=== PATIENT | female | born 1955 | race African-American/Black ===

== ENCOUNTER 2016-12-10 12:30 | Inpatient (IN) | payer OTHER ==
[~2016-12-10] VITALS: Ht 167.6 cm; Wt 121.8 kg
[~2016-12-10 12:30] MED LIST changes: -AEROSPAN80 MCG/Act IH; -ASPIRIN 81M81 MG/TA2 PO; -B-121000 MCG PO; -CANA300T PO; -CLARITIN 1010 MG/TAB PO; -DIOVAN 40MG40 MG PO; -ENJUVIA PO; -FLONASEALLERGY NS; -GLUCOTROL 5M5 MG/TAB PO; -OMEGA-3 1000 MG1 CAP PO; -PREDNISONE10 MG PO; -RT ADVAIR 228 DISKUS IH; -SINGULAIR 110 MG/TAB PO; -SYNTHROID0.05 MG/TA PO; -VITAMIN D32000 IU PO; -ZOCOR 20MG20 MG PO
[2016-12-10] MEDS ORDERED: ASPIRIN 81M81 MG/TA2 PO (14:59)
[2016-12-10] MEDS ORDERED: VITAMIN D32000 IU PO (15:01)
[2016-12-10] MEDS ORDERED: DIOVAN 40MG40 MG PO (15:26)
[2016-12-10] MEDS ORDERED: CANA300T PO (15:26)
[2016-12-10] MEDS ORDERED: ZOCOR 20MG20 MG PO (15:27)
[2016-12-10] MEDS ORDERED: SYNTHROID0.05 MG/TA PO (15:27)
[2016-12-10] MEDS ORDERED: OMEGA-3 1000 MG1 CAP PO (15:28)
[2016-12-10] MEDS ORDERED: GLUCOTROL 5M5 MG/TAB PO (15:28)
[2016-12-10] MEDS ORDERED: B-121000 MCG PO (15:28)
[2016-12-10] MEDS ORDERED: ENJUVIA PO (15:30)
[2016-12-10 16:09] VITALS: BP 118/90; PULSE 91; TEMP 98.7
[2016-12-10 20:42] VITALS: BP 123/69; PULSE 105; TEMP 98.6
[2016-12-10 22:51] VITALS: BP 123/67; PULSE 82; TEMP 98.4
[2016-12-11 03:33] VITALS: BP 118/72; PULSE 94; TEMP 97.5
[2016-12-11 06:41] LABS: BASO % 0.6 % (0.0-2.0); EOS # 0.4 (0.0-0.7); EOS % 7.2 % (0-4.0); GRAN # 2.4 (1.4-6.5); HEMATOCRIT 41.3 % (37.0-47.0); HEMOGLOBIN 13.1 g/dl (12.5-16.0); LYMPH # 2.2 (1.2-3.4); MEAN CELL VOLUME 86 fl (80.0-100.0); MEAN CORPUSCULAR HEMOGLOBIN 27 pg (27.0-31.0); MEAN CORPUSCULAR HGB CONC 32 g/dl (33.0-37.0); MEAN PLATELET VOLUME 9.9 fl (7.4-10.4); MONO # 0.4 (0.1-0.6); PLATELET COUNT 232 K/mm3 (130-400); RED BLOOD COUNT 4.81 M/mm3 (4.10-5.30); WHITE BLOOD COUNT 5.4 K/mm3 (4.8-10.8)
[2016-12-11 07:08] VITALS: BP 129/79; PULSE 92; TEMP 99
[2016-12-11 07:10] LABS: CALCIUM 9.3 mg/dL (8.4-10.2); CREATININE, serum 0.79 mg/dL (0.52-1.25); POTASSIUM 3.9 mmol/L (3.4-5.0)
[2016-12-11 11:31] VITALS: BP 151/86; PULSE 90; TEMP 98
[2016-12-11 15:16] VITALS: BP 107/76; PULSE 96; TEMP 97.8
[2016-12-11 19:48] VITALS: BP 102/59; PULSE 102; TEMP 97.7
[2016-12-11 23:32] VITALS: BP 119/63; PULSE 95; TEMP 98.8
[2016-12-12 04:29] VITALS: BP 118/72; PULSE 87; TEMP 98.5
[2016-12-12 11:40] VITALS: BP 117/68; PULSE 96; TEMP 98.7
[2016-12-12 17:21] VITALS: BP 124/67; PULSE 97; TEMP 99
[2016-12-12 20:14] VITALS: BP 142/88; PULSE 113; TEMP 98.5
[2016-12-12 23:55] VITALS: BP 123/79; PULSE 102; TEMP 98
[2016-12-13 02:52] VITALS: BP 143/87; PULSE 91; TEMP 98.4
[2016-12-13 07:07] LABS: ADD PATHOLOGY DIFF REVIEW NO
[2016-12-13 07:22] LABS: HEMATOCRIT 42.8 % (37.0-47.0); HEMOGLOBIN 13.5 g/dl (12.5-16.0); MEAN CELL VOLUME 87 fl (80.0-100.0); MEAN CORPUSCULAR HEMOGLOBIN 28 pg (27.0-31.0); MEAN CORPUSCULAR HGB CONC 32 g/dl (33.0-37.0); MEAN PLATELET VOLUME 9.5 fl (7.4-10.4); PLATELET COUNT 279 K/mm3 (130-400); RED BLOOD COUNT 4.91 M/mm3 (4.10-5.30); REDCELL DISTRIBUTION WIDTH-CV 14.9 % (11.5-14.5); WHITE BLOOD COUNT 8.7 K/mm3 (4.8-10.8)
[2016-12-13 07:50] LABS: BAND 4 % (0-10); NEUTROPHILS 69 % (42.0-75.2); PLATELET ESTIMATE NORMAL (NORMAL); TOTAL CELLS COUNTED 100
[2016-12-13 08:11] VITALS: BP 125/74; PULSE 102; TEMP 98.6
[2016-12-13 12:01] VITALS: BP 136/89; PULSE 88; TEMP 98.8
[2016-12-13 15:02] VITALS: BP 116/67; PULSE 103; TEMP 98.5
[2016-12-13 19:38] VITALS: BP 123/68; PULSE 100; TEMP 98.8
[2016-12-13 22:33] VITALS: BP 127/67; PULSE 97; TEMP 98.5
[2016-12-14 03:39] VITALS: BP 128/85; PULSE 87; TEMP 97.9
[2016-12-14 07:35] VITALS: BP 114/71; PULSE 97; TEMP 98.4
[2016-12-14] MEDS ORDERED: CLARITIN 1010 MG/TAB PO (09:38)
[2016-12-14] MEDS ORDERED: RT ADVAIR 228 DISKUS IH (09:40)
[2016-12-14] MEDS ORDERED: SINGULAIR 110 MG/TAB PO (09:41)
[2016-12-14] MEDS ORDERED: FLONASEALLERGY NS (09:42)
[2016-12-14] MEDS ORDERED: AEROSPAN80 MCG/Act IH (09:45)
[2016-12-14] MEDS ORDERED: PREDNISONE10 MG PO (09:45)
[2016-12-14 11:14] VITALS: BP 122/76; PULSE 100; TEMP 98
[2016-12-17 12:48] LABS: .HISTOPLASMA ANTIGEN COMMENT Negative (()); .HISTOPLASMA ANTIGEN SERUM None Detected (())
[2016-12-18 15:39] LABS: COCCIDIOIDES AB IGG Negative (Negative); COCCIDIOIDES AB IGM Negative (Negative); COCCIDIOIDES CF Negative (Negative)
== END 2016-12-14 13:31 | disposition home or self-care (01) | DRG 202 ==
LOC: COL.VAS 12:30 → MEDICAL 13:30
PROVIDERS: Internal Medicine Pulmonary Disease; Nurse Practitioner Family
DX: J45.991 Cough variant asthma (principal); Z68.41 Body mass index [BMI] 40.0-44.9, adult; I10 Essential (primary) hypertension; E11.9 Type 2 diabetes mellitus without complications; E66.9 Obesity, unspecified; E26.9 Hyperaldosteronism, unspecified; G47.33 Obstructive sleep apnea (adult) (pediatric)
CPT/HCPCS: 99231-AI; 99232-AI; 99239; G0378; G0379; J1650; J7512; Q9967

== ENCOUNTER → 2016-12-10 | Outpatient (CLI) | payer OTHER ==
[~2016-12-10] MED LIST: AEROSPAN80 MCG/Act IH; ALDACTONE 25MG25 MG PO; ALLOPURINOL300 MG PO; ASPIRIN 81M81 MG/TA2 PO; B-121000 MCG PO; CANA300T PO; CENESTIN0.3 MG PO; CLARITIN 1010 MG/TAB PO; COREG CR80 MG PO; DIOVAN 40MG40 MG PO; DIOVAN HCT PO; DOXAZOCIN PO; ENJUVIA PO; FISH OIL CONC1000 MG PO; FLONASEALLERGY NS; GLUCOTROL 5M5 MG/TAB PO; OMEGA-3 1000 MG1 CAP PO; PREDNISONE10 MG PO; RT ADVAIR 228 DISKUS IH; SINGULAIR 110 MG/TAB PO; SINGULAIR10 MG PO; SYNTHROID0.05 MG/TA PO; TEKTURNA PO; TIROSINT50 MCG PO; VITAMIN D; VITAMIN D32000 IU PO; ZOCOR 20MG20 MG PO
== END ==
LOC: ZCOL.LAB 12:39
DX: I10 Essential (primary) hypertension (principal); J32.9 Chronic sinusitis, unspecified

== ENCOUNTER → 2017-07-29 | Outpatient (CLI) | payer OTHER ==
[~2017-07-29] MED LIST changes: +AEROSPAN80 MCG/Act IH; +ASPIRIN 81M81 MG/TA2 PO; +B-121000 MCG PO; +CANA300T PO; +CLARITIN 1010 MG/TAB PO; +DIOVAN 40MG40 MG PO; +ENJUVIA PO; +FLONASEALLERGY NS; +GLUCOTROL 5M5 MG/TAB PO; +OMEGA-3 1000 MG1 CAP PO; +PREDNISONE10 MG PO; +RT ADVAIR 228 DISKUS IH; +SINGULAIR 110 MG/TAB PO; +SYNTHROID0.05 MG/TA PO; +VITAMIN D32000 IU PO; +ZOCOR 20MG20 MG PO
== END ==
LOC: MC.RAD 09:00
DX: Z12.31 Encounter for screening mammogram for malignant neoplasm of breast (principal)

== ENCOUNTER → 2018-07-05 | Outpatient (REF) ==
[2018-07-05 15:29] LABS: HEMATOCRIT 27.5 % (37.0-47.0); HEMOGLOBIN 8.4 g/dl (12.5-16.0)
[2018-07-05 15:34] LABS: CALCIUM 9.6 mg/dL (8.4-10.2); CREATININE, serum 1.48 mg/dL (0.52-1.25); POTASSIUM 4.2 mmol/L (3.4-5.0)
== END ==
LOC: ZLAB.STJ 15:24
PROVIDERS: Family Medicine
DX: E83.39 Other disorders of phosphorus metabolism (principal); R79.89 Other specified abnormal findings of blood chemistry; R71.0 Precipitous drop in hematocrit

== ENCOUNTER → 2018-07-07 | Outpatient (CLI) | payer OTHER ==
[2018-07-07 10:43] LABS: TOTAL IRON BINDING CAPACITY 301 ug/dL (265-497)
[2018-07-07 10:59] LABS: IRON,SERUM 47 ug/dL (35-150)
[2018-07-07 11:10] LABS: FERRITIN 320 ng/mL (11-264)
== END ==
LOC: ZLAB.STJ 09:55
PROVIDERS: Internal Medicine Nephrology
DX: S72.91XD Unspecified fracture of right femur, subsequent encounter for closed fracture with routine healing (principal)

== ENCOUNTER → 2018-07-11 | Outpatient (REF) ==
[2018-07-11 11:04] LABS: HEMATOCRIT 27.3 % (37.0-47.0); HEMOGLOBIN 8.3 g/dl (12.5-16.0)
[2018-07-11 11:18] LABS: CALCIUM 9.2 mg/dL (8.4-10.2); CREATININE, serum 1.01 mg/dL (0.52-1.25); PHOSPHOROUS 3.3 mg/dL (2.5-4.5); POTASSIUM 4.5 mmol/L (3.4-5.0)
== END ==
LOC: ZLAB.STJ 10:39
PROVIDERS: Family Medicine
DX: D64.9 Anemia, unspecified (principal); E83.39 Other disorders of phosphorus metabolism; R79.89 Other specified abnormal findings of blood chemistry

== ENCOUNTER → 2018-07-15 | Outpatient (CLI) | payer OTHER | LOC: COL.RAD 09:45 | DX: M17.11 Unilateral primary osteoarthritis, right knee (principal); M16.11 Unilateral primary osteoarthritis, right hip; S72.8X1A Other fracture of right femur, initial encounter for closed fracture ==

== ENCOUNTER → 2018-08-11 | Outpatient (CLI) | payer OTHER | LOC: COL.VAS 08:26 | DX: Z13.6 Encounter for screening for cardiovascular disorders (principal); M79.89 Other specified soft tissue disorders ==

== ENCOUNTER → 2018-08-22 | Outpatient (REF) ==
[2018-08-22 13:50] LABS: COLLECTION METHOD CLEAN CATCH
[2018-08-22 14:07] LABS: MUCOUS Present /lpf; PH 7 (5-8); URINE APPEARANCE Hazy; URINE BACTERIA Many /hpf; URINE BILIRUBIN Negative (NEGATIVE); URINE BLOOD Negative (NEGATIVE); URINE COLOR Yellow; URINE GLUCOSE Negative (NEGATIVE); URINE KETONE Negative (NEGATIVE); URINE LEUKOCYTE ESTERASE Negative (NEGATIVE); URINE NITRATE Negative (NEGATIVE); URINE PROTEIN(semi-quant) Negative (NEGATIVE); URINE RBC 0-2 /hpf; URINE UROBILINOGEN Negative (NEGATIVE)
== END ==
LOC: ZLAB.STJ 13:49 → ZLAB.WCH 13:49
PROVIDERS: Family Medicine
DX: R82.90 Unspecified abnormal findings in urine (principal)

== ENCOUNTER → 2018-08-25 | Outpatient (CLI) | payer OTHER ==
[2018-08-25 16:10] LABS: COLLECTION METHOD CLEAN CATCH
[2018-08-25 16:26] LABS: MUCOUS Present /lpf; PH 5 (5-8); URINE APPEARANCE Clear; URINE BACTERIA Rare /hpf; URINE BILIRUBIN Negative (NEGATIVE); URINE BLOOD Negative (NEGATIVE); URINE CALCIUM OXALATE CRYSTAL Present /hpf; URINE COLOR Yellow; URINE GLUCOSE Negative (NEGATIVE); URINE KETONE Negative (NEGATIVE); URINE LEUKOCYTE ESTERASE Negative (NEGATIVE); URINE NITRATE Negative (NEGATIVE); URINE PROTEIN(semi-quant) Negative (NEGATIVE); URINE RBC 0-2 /hpf; URINE UROBILINOGEN Negative (NEGATIVE)
== END ==
LOC: ZCOL.LAB 15:14 → ZLAB.STJ 15:14
PROVIDERS: Family Medicine
DX: N39.0 Urinary tract infection, site not specified (principal)

== ENCOUNTER → 2019-09-04 | Outpatient (CLI) | payer BC | LOC: MC.RAD 13:13 | DX: Z12.31 Encounter for screening mammogram for malignant neoplasm of breast (principal) ==

== ENCOUNTER 2019-10-05 10:00 | Outpatient (RCR) | payer BC | END 2020-02-23 | LOC: WSC | DX: S72.351D Displaced comminuted fracture of shaft of right femur, subsequent encounter for closed fracture with routine healing (principal) ==

== ENCOUNTER → 2020-01-25 | Outpatient (CLI) | payer BC | LOC: ZCOL.LAB 07:32 | DX: Z20.828 Contact with and (suspected) exposure to other viral communicable diseases (principal) ==

== ENCOUNTER 2020-07-29 17:24 | Inpatient (IN) | payer BC ==
[~2020-07-29] VITALS: Ht 172.7 cm; Wt 144.0 kg
[2020-07-29 18:23] LABS: ARTERIAL BLD GAS O2 SATURATION 87.3 % (92-100); ARTERIAL BLD GAS TCO2 CT 24.2; ARTERIAL BLOOD GAS BASE EXCESS -1.3 (-2-2); ARTERIAL BLOOD GAS PCO2 37.8 mmHg (35-45); ARTERIAL BLOOD GAS PO2 51.7 mmHg (80-100)
[2020-07-29 18:26] LABS: BASO % 0.1 % (0.0-2.0); GRAN # 10.5 (1.4-6.5); GRAN % 85.1 % (42.2-75.2); HEMATOCRIT 46.5 % (37.0-47.0); HEMOGLOBIN 14.4 g/dl (12.5-16.0); LYMPH # 1.3 (1.2-3.4); LYMPH % 10.3 % (20.0-51.0); MEAN CELL VOLUME 86 fl (80.0-100.0); MEAN CORPUSCULAR HEMOGLOBIN 27 pg (27.0-31.0); MEAN CORPUSCULAR HGB CONC 31 g/dl (33.0-37.0); MEAN PLATELET VOLUME 9.3 fl (7.4-10.4); MONO # 0.5 (0.1-0.6); PLATELET COUNT 303 K/mm3 (130-400); REDCELL DISTRIBUTION WIDTH-CV 16.2 % (11.5-14.5)
[2020-07-29 18:39] LABS: ALANINE AMINOTRANSFERASE 23 U/L (4-34); ALBUMIN 4.3 gm/dL (3.5-5.0); ALKALINE PHOSPHATASE 111 U/L (50-136); ANION GAP 16 mmol/L (7-16); AST,SGOT 36 U/L (15-37); BILIRUBIN,TOTAL 0.9 mg/dL (0.0-1.0); BLOOD UREA NITROGEN 19 mg/dL (7-17); CALCIUM 9.8 mg/dL (8.4-10.2); CARBON DIOXIDE 26 mmol/L (22-30); CHLORIDE 97 mmol/L (98-107); CREATININE, serum 0.91 (0.52-1.25); GLUCOSE 221 mg/dL (74-106); POTASSIUM 5.1 mmol/L (3.4-5.0); SODIUM 139 mmol/L (137-145)
[2020-07-29 18:52] LABS: TROPONIN-I < 0.012 ng/mL (0.000-0.035)
--- NOTE | 2020-07-29 23:10 | NUR ---
Pt stated during transfer from ED to medical that is bringing in her CPAP and walker in.
[2020-07-29] MEDS ORDERED: APRESOLINE 25MG25 MG PO (23:19)
[2020-07-29] MEDS ORDERED: JARDIANCE25 (23:19)
[2020-07-29] MEDS ORDERED: COZAAR 50MG50 MG/TAB PO (23:20)
[2020-07-29] MEDS ORDERED: HCTZ12.5TAB PO (23:20)
[2020-07-29] MEDS ORDERED: ZYLOPRIM 300MG300 MG PO (23:22)
[2020-07-29] MEDS ORDERED: VICTOZA6 MG/ML SQ (23:23)
[2020-07-29] MEDS ORDERED: LEXAPRO 10MG10 MG PO (23:23)
[2020-07-30] VITALS (9 sets, daily range): BP systolic 124–163; BP diastolic 70–98; PULSE 75–100; TEMP 97.9–98.8
[2020-07-30 00:25] LABS: INR 1.2 (0.8-3.0); PROTHROMBIN TIME 12.9 SECONDS (9.7-12.8)
[2020-07-30 00:27] LABS: PARTIAL THROMBOPLASTIN TIME 35.3 SECONDS (26.0-37.0)
[2020-07-30 03:07] LABS: ARTERIAL BLOOD GAS PCO2 48.9 mmHg (35-45); ARTERIAL BLOOD GAS PO2 72.4 mmHg (80-100); ARTERIAL BLOOD GAS pH 7.35 (7.35-7.45)
[2020-07-30 03:09] LABS: ARTERIAL BLD GAS O2 SATURATION 28.1 % (92-100); ARTERIAL BLOOD GAS BASE EXCESS 0.4 (-2-2); ARTERIAL BLOOD GAS HCO3 26.6 meq/L (22-26)
--- NOTE | 2020-07-30 09:00 | NUR ---
PATIENT IS A&O. VSS WITH SATS IN 90'S ON ARVO AT 45L. TELE INPLACE. A&P LUNG BASES DEMINISHED. PATIENT INDEPENDENT IN ROOM BUT DOES DISPLAY SOME SOA WITH ACTIVITY. NO C/O N/V. AHA DIET. 1500CC FR. AM BS IS 173. AM MEDS GIVEN. HEAD TO TOE ASSESSMENT COMPLETE. CALL LIGHT IN REACH. ADMISSION ASSESSMENT, HISTORY, MEDS & CARE PLAN COMPLETED. CONSULTS CALLED.
--- NOTE | 2020-07-30 15:45 | NUR ---
Piece Maker attempted to contact the patient via cell phone to complete inital the patient did not answer. SW contacted the patient's , Mayuri to complete intake. The patient lives in [place] with Mayuri. The patient's daughter from [place] will be at the home to assist. The patient uses a walker and CPAP. The patient's PCP is Dr. Roger and patient receives medications from [facility]. The patient has advanced directives. Mayuri reports they designate him. The plan is for the patient to return home and Mayuri will provide transportation. There are no additional needs at this time.
--- NOTE | 2020-07-30 20:00 | NUR ---
Assessment complete. Patient wearsa 45 liters oxygen via airvo; She is assisted to bathroom with walker; She becomes very SOA after exertion but is able to catch her breath on the side of the bed. Her gait is steady. She has no complaints of pain at this time. Comfort measures provided. Call light in reach.
[2020-07-31] VITALS: BP 123/76; PULSE 83; TEMP 98.7
[2020-07-31 04:00] VITALS: BP 108/52; BP 135/90; PULSE 70; PULSE 81; TEMP 98.3; TEMP 98.8
[2020-07-31 06:40] LABS: HEMATOCRIT 41.8 % (37.0-47.0); HEMOGLOBIN 12.9 g/dl (12.5-16.0); MEAN CELL VOLUME 87 fl (80.0-100.0); MEAN CORPUSCULAR HEMOGLOBIN 27 pg (27.0-31.0); MEAN CORPUSCULAR HGB CONC 31 g/dl (33.0-37.0); MEAN PLATELET VOLUME 10.6 fl (7.4-10.4); PLATELET COUNT 283 K/mm3 (130-400); RED BLOOD COUNT 4.83 M/mm3 (4.10-5.30); REDCELL DISTRIBUTION WIDTH-CV 16.4 % (11.5-14.5)
[2020-07-31 06:51] LABS: CALCIUM 9.6 mg/dL (8.4-10.2); CREATININE, serum 0.76 (0.52-1.25); POTASSIUM 4.9 mmol/L (3.4-5.0)
--- NOTE | 2020-07-31 07:00 | NUR ---
Report received from JESSICA Barnett. pT in bed resting, will continue to monitor.
[2020-07-31 07:57] LABS: BAND 8 % (0-10); LYMPHOCYTE 11 % (20.0-51.0); NEUTROPHILS 77 % (42.0-75.2); NUCLEATED RED BLOOD CELL 1 (0-6)
[2020-07-31 07:59] LABS: PLATELET ESTIMATE NORMAL (NORMAL)
[2020-07-31 08:00] LABS: ANISOCYTOSIS 1+
[2020-07-31 08:02] LABS: HYPOCHROMIA 1+
[2020-07-31 08:50] VITALS: BP 116/78; PULSE 89; TEMP 98.1
--- NOTE | 2020-07-31 09:33 | NUR ---
Assessment charted. PT states she feels well, rested some last night and is not tired todya. Breathing is very tachypneac, AIRVO at 60L and 87% right now. Educated on cough deep breath, getting up when tolerable to chair for meals. Pt denies pain, nausea, diarrhea. Resting in bed on phone with family. PICC to KODAK flushes well and good blood return. Does not like food here, discussed calling for alternatives. Will continue to monitor.
[2020-07-31 12:51] VITALS: BP 131/81; PULSE 88; TEMP 97.7
[2020-07-31 16:00] VITALS: BP 130/78; PULSE 89; TEMP 97.6
--- NOTE | 2020-07-31 17:47 | NUR ---
Pt resting in bed. Insisted upon shower today, did take a very long shower 45 minutes, did not get fatigued or extremely short of breath. Assisted in the shower, pt needed assistance with many ADLs. Resting back in bed, remians on AIRVO. denies needs, will give report to nightshift nurse who will resume care.
[2020-07-31 20:00] VITALS: BP 124/83; PULSE 84; TEMP 98.3
--- NOTE | 2020-07-31 22:00 | NUR ---
Patient's BG is 401 at this time. 14 units insulin administered, per protocol and RETAIL WIRELESS ASSOCIATE Vanda notified. No new orders, will continue to monitor.
[2020-08-01] VITALS (385 sets, daily range): BP systolic 99–134; BP diastolic 47–94; PULSE 61–90; TEMP 97.4–98.5; O2SAT 82–100
--- NOTE | 2020-08-01 06:30 | NUR ---
PT IS SLEEPING IN BED, CURRENTLY HAS BIPAP ON. IT WAS NOTED DURING REPORT THAT PT REMOVED BIPAP AND ATTEMPTED TO PLACE AIRVO ON WITHOUT ASSISTANCE. THIS WAS THE ONLY IMPULSIVE ACTION THE PATIENT MADE THE LAST SHIFT. PT IS CURRENTLY ASLEEP AND BIPAP IS ON. CALL LIGHT IS WITHIN REACH, AND BED ALARM IS ON.
[2020-08-01 07:10] LABS: BASO % 0.1 % (0.0-2.0); GRAN # 5.4 (1.4-6.5); GRAN % 78.1 % (42.2-75.2); HEMOGLOBIN 12.7 g/dl (12.5-16.0); LYMPH # 0.9 (1.2-3.4); LYMPH % 13.2 % (20.0-51.0); MEAN CELL VOLUME 87 fl (80.0-100.0); MEAN CORPUSCULAR HEMOGLOBIN 27 pg (27.0-31.0); MEAN CORPUSCULAR HGB CONC 31 g/dl (33.0-37.0); MEAN PLATELET VOLUME 9.6 fl (7.4-10.4); MONO # 0.5 (0.1-0.6); MONO % 7.9 % (1.7-9.3); PLATELET COUNT 368 K/mm3 (130-400); RED BLOOD COUNT 4.74 M/mm3 (4.10-5.30); REDCELL DISTRIBUTION WIDTH-CV 16.2 % (11.5-14.5)
[2020-08-01 07:21] LABS: CALCIUM 9.6 mg/dL (8.4-10.2); CREATININE, serum 0.77 (0.52-1.25); POTASSIUM 4.6 mmol/L (3.4-5.0)
--- NOTE | 2020-08-01 09:18 | NUR ---
PT REFUSING ALL CARES THIS MORNING. PT OXYGEN IS SATING BETWEEN 83 AND 88. WILL CONTACT PROVIDER, TOLD PATIENT WE MAY NEED A BLOOD GAS, AND PT STATES SHE REFUSES AND DOES NOT WANT US TOUCHING HER. WILL INFORM THE PROVIDER OF PT REFUSAL.
[2020-08-01 10:41] LABS: ARTERIAL BLD GAS TCO2 CT 28.8; ARTERIAL BLOOD GAS BASE EXCESS 1.4 (-2-2); ARTERIAL BLOOD GAS HCO3 27.3 meq/L (22-26); ARTERIAL BLOOD GAS PCO2 47.8 mmHg (35-45); ARTERIAL BLOOD GAS PO2 92.9 mmHg (80-100); ARTERIAL BLOOD GAS pH 7.38 (7.35-7.45)
--- NOTE | 2020-08-01 12:55 | NUR ---
RECEIVED REPORT FROM JESSICA NICOLAS. AWAITING ARRIVAL OF PT TO ISU 3.
--- NOTE | 2020-08-01 13:25 | NUR ---
PT ARRIVES TO ICU 3 ON OXYMASK AT 15ML VIA STRETCHER. PT ABLE TO TRANSFER X2 TO BSC THEN TO ICU BED, RR NOTED TO BE IN THE 30s DURING THIS TIME BUT DOES NOT SEEM AIR HUNGER. PT PLACED ON BEDSIDE CONTINUOUS MONITOR. VSS. RT AT BEDSIDE PLACING PT ON BIPAP, POX GOES FROM 87-95% ONCE ON IT FOR A FEW MINUTES. CALL LIGHT WITHIN REACH.
--- NOTE | 2020-08-01 13:30 | NUR ---
PT TAKEN TO ICU 03, JESSICA MEDINA THERE TO RECEIVE PT. PT IS CURRENTLY STABLE.
--- NOTE | 2020-08-01 16:49 | NUR ---
NOTIFIED DR BALLARD OF FSBS 354, NEW ORDERS RECEIVED.
--- NOTE | 2020-08-01 19:25 | NUR ---
REPORT GIVEN TO JESSICA MCGUIRE.
[2020-08-02] VITALS (433 sets, daily range): BP systolic 101–131; BP diastolic 68–89; PULSE 64–103; TEMP 97.5–98.5; O2SAT 47–100
[2020-08-02 05:29] LABS: EOS % 0.3 % (0-4.0); HEMATOCRIT 40.9 % (37.0-47.0); HEMOGLOBIN 12.7 g/dl (12.5-16.0); LYMPH # 1.2 (1.2-3.4); LYMPH % 17.1 % (20.0-51.0); MEAN CELL VOLUME 87 fl (80.0-100.0); MEAN CORPUSCULAR HEMOGLOBIN 27 pg (27.0-31.0); MEAN CORPUSCULAR HGB CONC 31 g/dl (33.0-37.0); MEAN PLATELET VOLUME 9.2 fl (7.4-10.4); MONO # 0.5 (0.1-0.6); MONO % 7.7 % (1.7-9.3); PLATELET COUNT 309 K/mm3 (130-400); RED BLOOD COUNT 4.73 M/mm3 (4.10-5.30); REDCELL DISTRIBUTION WIDTH-CV 16.1 % (11.5-14.5)
[2020-08-02 05:43] LABS: CALCIUM 9.6 mg/dL (8.4-10.2); CREATININE, serum 0.75 (0.52-1.25); PHOSPHOROUS 3.7 mg/dL (2.5-4.5); POTASSIUM 4.2 mmol/L (3.4-5.0)
--- NOTE | 2020-08-02 07:15 | NUR ---
Report given to JESSICA Dc. Patient currently sitting up in bed with breakfast tray. Wearing AirVo; tolerating well.
--- NOTE | 2020-08-02 07:30 | NUR ---
REPORT RECEIVED FROM JESSICA MCGUIRE. PATIENT CURRENTLY SLEEPING IN BED AT 30 DEGREEE ANGLE. SHE APPEARS COMFORTABLE IN NO DISTRESS. WILL CONTINUE TO MONITOR.
--- NOTE | 2020-08-02 11:00 | NUR ---
INSULIN GTT DISCONTINUED PER DR. BALLARD ORDER AND PATIENT ASSISTED TO BEDSIDE COMMODE. SHE IS STEADY ON HER FEET BUT GETS SHORT OF BREATH WITH EXERTION. SPO2 DIPPED INTO THE MID-80s WHEN UP AND MOVING WHILE ON AIRVO.
--- NOTE | 2020-08-02 16:48 | NUR ---
Telesales Professional requested PT/OT orders from Hospitalist.
--- NOTE | 2020-08-02 19:24 | NUR ---
REPORT GIVEN TO JESSICA VARGAS
--- NOTE | 2020-08-02 20:00 | NUR ---
Assessment complete. Pt is AXO X3, denies having any pain at this time. Breathing is even and unlabored on airvo while sitting in the recliner. KODAK PICC has good blood return, flushes easily, and remains free of complications. Pt is sitting up in the bed recliner talking on her phone at this time and she denies further needs. Call light within reach, will continue to monitor.
[2020-08-03] VITALS (756 sets, daily range): BP systolic 91–138; BP diastolic 60–96; PULSE 71–106; TEMP 98–98.5; O2SAT 75–100
--- NOTE | 2020-08-03 07:00 | NUR ---
RECEIVED REPORT FROM JESSICA VARGAS. PT RESTING EASILY IN BED ON AIRVO AT 60L, 69%. VSS. CALL LIGHT WITHIN REACH.
[2020-08-03 07:06] LABS: EOS # 0.1 (0.0-0.7); EOS % 1.4 % (0-4.0); GRAN # 4.5 (1.4-6.5); HEMATOCRIT 42.4 % (37.0-47.0); HEMOGLOBIN 13.1 g/dl (12.5-16.0); LYMPH # 1.4 (1.2-3.4); LYMPH % 21.1 % (20.0-51.0); MEAN CELL VOLUME 86 fl (80.0-100.0); MEAN CORPUSCULAR HEMOGLOBIN 27 pg (27.0-31.0); MEAN CORPUSCULAR HGB CONC 31 g/dl (33.0-37.0); MEAN PLATELET VOLUME 9.1 fl (7.4-10.4); MONO # 0.6 (0.1-0.6); MONO % 9.4 % (1.7-9.3); PLATELET COUNT 377 K/mm3 (130-400); RED BLOOD COUNT 4.92 M/mm3 (4.10-5.30)
[2020-08-03 07:36] LABS: CALCIUM 9.5 mg/dL (8.4-10.2); CREATININE, serum 0.69 (0.52-1.25); MAGNESIUM 1.9 mg/dL (1.6-2.3); POTASSIUM 4.7 mmol/L (3.4-5.0)
--- NOTE | 2020-08-03 09:00 | NUR ---
SPOKE WITH DR BALLARD ABOUT FSBS AND INSULIN, NEW ORDERS RECEIVED.
--- NOTE | 2020-08-03 12:00 | NUR ---
DISCUSSED WITH DR HELM ABOUT FSBS AND INSULIN. PHYSICIAN REQUESTS INSULIN GTT TO BE INITIATED. DR BALLARD NOTIFIED AND NEW ORDERS RECEIVED. PT UPDATED ON POC.
[2020-08-03 18:56] LABS: MAGNESIUM 1.8 mg/dL (1.6-2.3); PHOSPHOROUS 2.9 mg/dL (2.5-4.5); POTASSIUM 4.6 mmol/L (3.4-5.0)
--- NOTE | 2020-08-03 20:00 | NUR ---
Assessment complete. Pt is AXO X3, denies having any pain at this time. Breathing is even but labored after exertion on 60L via Airvo. KODAK PICC has insulin gtt infusing free of complications. Pt is sitting up in the chair talking on the phone with family at this time and she denies further needs. Call light within reach, will continue to monitor.
[2020-08-04] VITALS (952 sets, daily range): BP systolic 110–138; BP diastolic 72–85; PULSE 68–83; TEMP 97.8–98.4; O2SAT 38–100
[2020-08-04 00:59] LABS: MAGNESIUM 1.7 mg/dL (1.6-2.3); PHOSPHOROUS 3.1 mg/dL (2.5-4.5); POTASSIUM 4.1 mmol/L (3.4-5.0)
[2020-08-04 06:29] LABS: EOS # 0.2 (0.0-0.7); GRAN # 4.9 (1.4-6.5); HEMATOCRIT 39.6 % (37.0-47.0); HEMOGLOBIN 12.2 g/dl (12.5-16.0); LYMPH # 1.3 (1.2-3.4); LYMPH % 17.9 % (20.0-51.0); MEAN CELL VOLUME 87 fl (80.0-100.0); MEAN CORPUSCULAR HEMOGLOBIN 27 pg (27.0-31.0); MEAN CORPUSCULAR HGB CONC 31 g/dl (33.0-37.0); MEAN PLATELET VOLUME 9.6 fl (7.4-10.4); MONO % 12.8 % (1.7-9.3); PLATELET COUNT 430 K/mm3 (130-400); RED BLOOD COUNT 4.56 M/mm3 (4.10-5.30); REDCELL DISTRIBUTION WIDTH-CV 15.9 % (11.5-14.5)
[2020-08-04 06:40] LABS: CALCIUM 9.6 mg/dL (8.4-10.2); CREATININE, serum 0.62 (0.52-1.25); MAGNESIUM 1.9 mg/dL (1.6-2.3); PHOSPHOROUS 3.1 mg/dL (2.5-4.5); POTASSIUM 4.4 mmol/L (3.4-5.0)
--- NOTE | 2020-08-04 07:00 | NUR ---
RECEIVED REPORT FROM JESSICA VARGAS. PT SITTING UP IN CHAIR SLEEPING ON BIPAP. VSS. CALL LIGHT WITHIN REACH. SEE GTT FLOWSHEET.
--- NOTE | 2020-08-04 13:00 | NUR ---
DSICUSSED POC WITH DR HELM AND DR BALLARD ABOUT INSULIN GTT. THEY REQUEST LEVEMIR ORDERED TO BE GIVEN THEN AN HOUR LATER TO TURN OFF INSULIN GTT THEN RECHECK FSBS AGAIN 30 MINS AFTER GTT IS OFF. PT UPDATED ON POC. VERBALIZED UNDERSTANDING.
[2020-08-04 13:08] LABS: MAGNESIUM 1.8 mg/dL (1.6-2.3); PHOSPHOROUS 2.5 mg/dL (2.5-4.5); POTASSIUM 4.7 mmol/L (3.4-5.0)
--- NOTE | 2020-08-04 16:30 | NUR ---
SPOKE WITH DR BALLARD ABOUT FSBS SINCE LEVEMIR WAS GIVEN AND INSULIN GTT OFF. PHYISICIAN STATES TO DO SLIDING SCALE AND ORDERS TO GIVE 10 UNITS WITH MEAL AND TO CHECK TO SEE HOW PT LEVELS OUT OVER THE NEXT DAY.
--- NOTE | 2020-08-04 20:00 | NUR ---
Assessment complete. Pt is AXO X3, denies having any pain at this time. Breathing is even but labored after exertion on 50L via Airvo. KODAK PICC line flushes easily but has difficult blood return. Pt is sitting up in the bed watching TV at this time and she denies further needs. Call light within reach, will continue to monitor.
[2020-08-05] VITALS (482 sets, daily range): BP systolic 115–121; BP diastolic 70–81; PULSE 71–76; TEMP 97.8–98.2; O2SAT 55–100
[2020-08-05 07:22] LABS: HEMATOCRIT 41.5 % (37.0-47.0); HEMOGLOBIN 12.5 g/dl (12.5-16.0); MEAN CELL VOLUME 88 fl (80.0-100.0); MEAN CORPUSCULAR HEMOGLOBIN 27 pg (27.0-31.0); MEAN CORPUSCULAR HGB CONC 30 g/dl (33.0-37.0); MEAN PLATELET VOLUME 10.6 fl (7.4-10.4); PLATELET COUNT 405 K/mm3 (130-400); RED BLOOD COUNT 4.71 M/mm3 (4.10-5.30)
[2020-08-05 07:35] LABS: CALCIUM 9.9 mg/dL (8.4-10.2); CREATININE, serum 0.74 (0.52-1.25); MAGNESIUM 1.8 mg/dL (1.6-2.3); PHOSPHOROUS 2.9 mg/dL (2.5-4.5); POTASSIUM 4.7 mmol/L (3.4-5.0)
[2020-08-05 08:33] LABS: LYMPHOCYTE 15 % (20.0-51.0); NEUTROPHILS 83 % (42.0-75.2)
[2020-08-05 08:34] LABS: PLATELET ESTIMATE INCREASED (NORMAL)
--- NOTE | 2020-08-05 10:20 | NUR ---
SPOKE TO NAZIA REYNA WHO SPOKE TO THE RADIOLOGIST ABOUT CXR TODAY. YESTERDAY XRAY SHOWED NEED TO PULL PICC LINE BACK 4 CM. CLARIFIED WITH CXR FROM TODAY, RADIOLOGIST SAID THAT IT IS IN GOOD POSITION TODAY AND DOES NOT NEED MOVED AT THIS TIME.
--- NOTE | 2020-08-05 11:55 | NUR ---
Chaplain allisond for patient while standing outside of door
--- NOTE | 2020-08-05 12:37 | NUR ---
Supervisor Type Bar And Segment contacted Gris Thrasher RN-CM at [facility] and was advised they do not have copy of DPOA-HC. SW contacted patient's , Gris and left a message.
--- NOTE | 2020-08-05 17:51 | NUR ---
ATTEMPTED TO NOTIFY DR GUZMAN OF PT'S FSBS
--- NOTE | 2020-08-05 18:05 | NUR ---
NOTIFIED DR BALLARD ABOUT FSBS, IF GREATER THAN 400 AGAIN THEN CALL TO POSSIBLY GET BACK ON INSULIN GTT, IF LESS THAN 400 THEN PROVIDE INSULIN PER ORDERS.
--- NOTE | 2020-08-05 20:00 | NUR ---
Assessment complete. Pt is AXO X3, denies having any pain at this time. Breathing is even but labored after assisting the pt to the commode and back to the recliner on 45L via Airvo. KODAK PICC has good blood return, flushes easily, and remains free of complications. Pt is now sitting up in the recliner watching TV and she denies further needs. Call light within reach, will continue to monitor.
[2020-08-06] VITALS (351 sets, daily range): BP systolic 120–143; BP diastolic 72–97; PULSE 67–77; TEMP 97.8–98.1; O2SAT 53–99
--- NOTE | 2020-08-06 07:00 | NUR ---
RECEIVED REPORT FROM JESSICA VARGAS. PT SLEEPING IN BED ON BIPAP ON 75%. VSS. CALL LIGHT WITHIN REACH.
[2020-08-06 07:18] LABS: EOS # 0.1 (0.0-0.7); EOS % 0.8 % (0-4.0); GRAN # 5.6 (1.4-6.5); GRAN % 77.8 % (42.2-75.2); HEMATOCRIT 37.1 % (37.0-47.0); HEMOGLOBIN 11.5 g/dl (12.5-16.0); LYMPH # 0.9 (1.2-3.4); LYMPH % 13.1 % (20.0-51.0); MEAN CELL VOLUME 86 fl (80.0-100.0); MEAN CORPUSCULAR HEMOGLOBIN 27 pg (27.0-31.0); MEAN CORPUSCULAR HGB CONC 31 g/dl (33.0-37.0); MONO # 0.5 (0.1-0.6); MONO % 7.6 % (1.7-9.3); PLATELET COUNT 491 K/mm3 (130-400); REDCELL DISTRIBUTION WIDTH-CV 15.8 % (11.5-14.5)
[2020-08-06 07:29] LABS: CALCIUM 9.5 mg/dL (8.4-10.2); CREATININE, serum 0.67 (0.52-1.25); MAGNESIUM 1.8 mg/dL (1.6-2.3); PHOSPHOROUS 3.1 mg/dL (2.5-4.5); POTASSIUM 4.6 mmol/L (3.4-5.0)
--- NOTE | 2020-08-06 10:00 | NUR ---
DR HELM AT BEDSIDE FOR ASSESSMENT. DISCUSSED INSULIN GTT TO BE RESTARTED AND LEVEMIR CHANGES, SEE MAR.
--- NOTE | 2020-08-06 20:00 | NUR ---
Assessment complete. Pt is AXO X3, denies having any pain at this time. Breathing is even but labored after exertion on Airvo. KODAK PICC line has insulin gtt infusing free of complications. Pt is sitting up in the bed watching TV at this time and she denies further needs. Call light within reach, will continue to monitor.
[2020-08-07] VITALS (437 sets, daily range): BP systolic 116–142; BP diastolic 69–108; PULSE 70–89; TEMP 98–98.3; O2SAT 55–100
[2020-08-07 12:07] LABS: BASO % 0.1 % (0.0-2.0); EOS # 0.1 (0.0-0.7); EOS % 0.7 % (0-4.0); GRAN # 7.2 (1.4-6.5); GRAN % 75.6 % (42.2-75.2); HEMATOCRIT 36.9 % (37.0-47.0); HEMOGLOBIN 11.4 g/dl (12.5-16.0); LYMPH # 1.3 (1.2-3.4); MEAN CELL VOLUME 88 fl (80.0-100.0); MEAN CORPUSCULAR HEMOGLOBIN 27 pg (27.0-31.0); MEAN CORPUSCULAR HGB CONC 31 g/dl (33.0-37.0); MEAN PLATELET VOLUME 10.3 fl (7.4-10.4); PLATELET COUNT 519 K/mm3 (130-400); RED BLOOD COUNT 4.18 M/mm3 (4.10-5.30); REDCELL DISTRIBUTION WIDTH-CV 15.9 % (11.5-14.5)
[2020-08-07 14:25] LABS: CALCIUM 9.4 mg/dL (8.4-10.2); CREATININE, serum 0.68 (0.52-1.25); MAGNESIUM 1.8 mg/dL (1.6-2.3); PHOSPHOROUS 3.5 mg/dL (2.5-4.5); POTASSIUM 4.5 mmol/L (3.4-5.0)
--- NOTE | 2020-08-07 20:30 | NUR ---
Patient awake and alert and oriented X4. Requesting to go back on BIPAP after eating an evening snack. Denies any pain and reports shortness of breath is per baseline.
[2020-08-08] VITALS (1041 sets, daily range): BP systolic 118–128; BP diastolic 77–85; PULSE 64–80; TEMP 97.8–98.2; O2SAT 72–100
--- NOTE | 2020-08-08 02:00 | NUR ---
Resting in bed with eyes shut; tolerating BIPAP well. Denies any concerns at this time.
[2020-08-08 05:53] LABS: BASO % 0.1 % (0.0-2.0); EOS # 0.1 (0.0-0.7); EOS % 1.4 % (0-4.0); GRAN # 6.1 (1.4-6.5); GRAN % 70.8 % (42.2-75.2); HEMOGLOBIN 11.4 g/dl (12.5-16.0); LYMPH # 1.6 (1.2-3.4); LYMPH % 18.7 % (20.0-51.0); MEAN CELL VOLUME 87 fl (80.0-100.0); MEAN CORPUSCULAR HEMOGLOBIN 27 pg (27.0-31.0); MEAN CORPUSCULAR HGB CONC 31 g/dl (33.0-37.0); MEAN PLATELET VOLUME 9.8 fl (7.4-10.4); MONO # 0.7 (0.1-0.6); MONO % 8.4 % (1.7-9.3); PLATELET COUNT 460 K/mm3 (130-400); RED BLOOD COUNT 4.24 M/mm3 (4.10-5.30); REDCELL DISTRIBUTION WIDTH-CV 15.9 % (11.5-14.5)
[2020-08-08 06:05] LABS: CALCIUM 9.1 mg/dL (8.4-10.2); CREATININE, serum 0.72 (0.52-1.25); MAGNESIUM 1.9 mg/dL (1.6-2.3); PHOSPHOROUS 3.3 mg/dL (2.5-4.5); POTASSIUM 4.2 mmol/L (3.4-5.0)
--- NOTE | 2020-08-08 07:49 | NUR ---
Blood glucose 118 after drinking 8 oz of orange juice. Will keep Insulin drip on hold at this time per Dr. Sylvester.
--- NOTE | 2020-08-08 11:44 | NUR ---
Raw Finish Mill Operator collaborated with Dr. Sylvester who advised he talked with patient about a possible [facility] transfer. SW contacted Michael at [facility] and faxed referral. SW attempted to contact patient's , Mayuri and left a message.
--- NOTE | 2020-08-08 14:09 | NUR ---
Sales Account Representative received a call back from patient's , Mayuri who also had patient's daughter on the phone. ALYSHA provided update that a referral was sent to [facility] and that Dr. Sylvester had reviewed this with patient. Mayuri verbalized understanding and would like to speak with Michael, Clinical Liason if possible. ALYSHA contacted Michael and provided phone number for Mayuri (#[phone]). Michael to contact Mayuri. Michael also advised [facility] is closed Wednesday so he is working on authorization now. Michael also requested bipap settings. ALYSHA obtained settings from [facility] then provided them to Michael. ALYSHA will continue to follow.
--- NOTE | 2020-08-08 15:35 | NUR ---
Brazer Induction spoke with Vanda, Window Cutter (ph#[phone]) at [facility] who advised [facility] is the only [facility] in network for patient. SW contacted Michael at [facility] who advised the [place] [facility] has been full for months and he will have his insurance office contact Vanda. Michael also advised he spoke with patient's family and told them that he would try to get patient to either [place] or [place], [place]. Michael states family was agreeable to both locations.
--- NOTE | 2020-08-08 19:09 | NUR ---
report given to JESSICA Nunez
--- NOTE | 2020-08-08 19:50 | NUR ---
Assisted patient from [facility]. Had large BM and voided. Denies any shortness of breath or pain at this time. Assessment completed. Will continue to monitor; call light left within reach.
[2020-08-09] VITALS (584 sets, daily range): BP systolic 112–127; BP diastolic 70–80; PULSE 62–83; TEMP 97.7–98.2; O2SAT 60–100
--- NOTE | 2020-08-09 01:30 | NUR ---
Patient sleeping in recliner. Denied offer for assistance back to bed. Tolerating airvo well and refused offer to place on BIPAP. Will continue to monitor.
--- NOTE | 2020-08-09 02:15 | NUR ---
Requested to be place on BIPAP. Reports no other needs at this time.
[2020-08-09 07:50] LABS: BASO % 0.1 % (0.0-2.0); EOS # 0.1 (0.0-0.7); EOS % 1.5 % (0-4.0); GRAN # 6.7 (1.4-6.5); GRAN % 72.9 % (42.2-75.2); HEMATOCRIT 37.9 % (37.0-47.0); HEMOGLOBIN 11.7 g/dl (12.5-16.0); LYMPH # 1.7 (1.2-3.4); MEAN CELL VOLUME 89 fl (80.0-100.0); MEAN CORPUSCULAR HEMOGLOBIN 27 pg (27.0-31.0); MEAN CORPUSCULAR HGB CONC 31 g/dl (33.0-37.0); MEAN PLATELET VOLUME 10.2 fl (7.4-10.4); MONO # 0.7 (0.1-0.6); PLATELET COUNT 473 K/mm3 (130-400); RED BLOOD COUNT 4.27 M/mm3 (4.10-5.30)
[2020-08-09 07:57] LABS: CREATININE, serum 0.64 (0.52-1.25); PHOSPHOROUS 3.1 mg/dL (2.5-4.5); POTASSIUM 4.7 mmol/L (3.4-5.0)
--- NOTE | 2020-08-09 12:29 | NUR ---
Michael with [facility] states that patient's insurance is approving a transfer to [facility] in [place], [place] upon discharge. Michael will contact patient's spouse and advise of insurance approval. Will follow and assist with arrangements when patient is discharged. Worker notified patient's nurse of the above information.
--- NOTE | 2020-08-09 13:52 | NUR ---
Pt transferred to room 309 via w/c on 15L NRB. belongings sent with pt. pt transferred self to bed via standby assist. JESSICA Martinez at bedside on arrival.
--- NOTE | 2020-08-09 14:00 | NUR ---
Patient to room 309 by wheelchair from ICU. RT with patient with Airvo and Bipap. Droplet/contact precautions in place. Patient A&Ox4. IV CDI. Nurse oriented patient to location, room and call light. Patient ambulated with standby assist to the bed. Denies SOB, pain and discomfort. No further needs expressed from the patient. Call light within reach
--- NOTE | 2020-08-09 17:00 | NUR ---
Insurance Sales Supervisor contacted [facility] regarding transportation next week. Shira from [facility] reports they are not transporting on Saturday 08/12 due to holiday.
--- NOTE | 2020-08-09 17:42 | NUR ---
Patient sitting up in bed eating dinner. Reports being tired. A&Ox4. IV CDI. VSS 40L Airvo, no reported SOB. Denies pain and discomfort. No further needs expressed from the patient. Call light within reach
[2020-08-10 04:55] VITALS: BP 101/60; PULSE 74; TEMP 98.3
[2020-08-10 07:52] VITALS: BP 124/62; PULSE 80; TEMP 98.5
--- NOTE | 2020-08-10 08:00 | NUR ---
Patient laying in bed eyes closed, easily awakened with verbal command. A&Ox4. VSS 40L Airvo. No reported SOB. IV CDI. Denies pain and discomfort. No further needs expressed from the patient. Call light within reach
[2020-08-10 11:42] VITALS: BP 110/70; PULSE 82; TEMP 98.8
[2020-08-10 15:50] VITALS: BP 126/71; PULSE 82; TEMP 98.4
--- NOTE | 2020-08-10 16:41 | NUR ---
Patient had an uneventful day. Slept most of the day. A&Ox3. VSS 40L Airvo. No reported SOB. IV CDI. Denies pain and discomfort. No further needs expressed from the patient. Call light within reach
[2020-08-10 22:44] VITALS: BP 103/58; PULSE 86; TEMP 98
--- NOTE | 2020-08-11 01:21 | NUR ---
individual c/o of bipap "not being right." this loan underwriter switched individual to AV and assist,walker, to easy chair with legs rasied. Noted some SOB during transfer but recovered quickly. C/O RAMIREZ and given Tylenol 650mg. no s/s of ditress noted at this time.
[2020-08-11 04:03] VITALS: BP 96/58; PULSE 77; TEMP 98.5
--- NOTE | 2020-08-11 07:21 | NUR ---
SOPHY LOPEZ REPORTS GIVING SYNTHROID.
--- NOTE | 2020-08-11 07:45 | NUR ---
PT SLEEPING IN ROOM, RT REPORTED TURNING DOWN AIRVO SETTINGS.
[2020-08-11 07:53] VITALS: BP 114/65; PULSE 78; TEMP 98.1
--- NOTE | 2020-08-11 09:30 | NUR ---
PT ORIGINALLY REFUSED BREAKFAST THEN DECIDED TO EAT, INSULIN GIVEN, PT ATE ALL OF BREAKFAST, SLEEPING UPON ENTRY, SYNTHROID IN MED CUP AT BEDSIDE NOT TAKEN BY PT SO SCANNED WITH OTHER MORNING MEDICATIONS AND GIVEN. ASSESSMENT PERFORMED, VITALS REVIEWED, ICE WATER BROUGHT IN, CALL LIGHT AT BEDSIDE, DENIES PAIN OR DISCOMFORT, NO OTHER NEEDS.
[2020-08-11 09:45] LABS: BASO % 0.3 % (0.0-2.0); EOS # 0.3 (0.0-0.7); EOS % 3.7 % (0-4.0); GRAN # 5.1 (1.4-6.5); GRAN % 70.1 % (42.2-75.2); LYMPH # 1.4 (1.2-3.4); LYMPH % 19.1 % (20.0-51.0); MEAN CELL VOLUME 89 fl (80.0-100.0); MEAN CORPUSCULAR HEMOGLOBIN 27 pg (27.0-31.0); MEAN CORPUSCULAR HGB CONC 30 g/dl (33.0-37.0); MEAN PLATELET VOLUME 9.6 fl (7.4-10.4); MONO # 0.4 (0.1-0.6); MONO % 6.1 % (1.7-9.3); PLATELET COUNT 375 K/mm3 (130-400)
[2020-08-11 09:47] LABS: HEMATOCRIT 36.3 % (37.0-47.0)
[2020-08-11 09:55] LABS: CALCIUM 9.1 mg/dL (8.4-10.2); CREATININE, serum 0.64 (0.52-1.25); POTASSIUM 4.1 mmol/L (3.4-5.0)
--- NOTE | 2020-08-11 12:07 | NUR ---
Patient is currently on 40L 02. Plan is still for [facility] to go to [facility] [place] this upcoming week. Social work will continue to follow.
[2020-08-11 12:57] VITALS: BP 111/42; PULSE 85; TEMP 97.9
--- NOTE | 2020-08-11 12:58 | NUR ---
ASSISTED PT TO BATHROOM. TOOK VITALS, PULSE OX 76%, RT CALLED AND RECOMMENDED TURNING PULSE OX TO SIDE ON FINGER DUE TO PT HAVING ACRYLIC NAILS. SATURATION CAME UP TO 88%. PT NOW SATTING BETWEEN 89-90% ON AIRVO
--- NOTE | 2020-08-11 13:20 | NUR ---
INCREASED TO 90% AND 50 LPM AFTER COMING BACK FROM BATHROOM. SPO2 90%
[2020-08-11 16:30] VITALS: BP 130/70; PULSE 91; TEMP 97.9
--- NOTE | 2020-08-11 17:31 | NUR ---
pt placed back on airvo, dinner at bedside, insulin given, denies pain at this time, ice water and warm blanket brought in per pt request, no other needs at this time.
--- NOTE | 2020-08-11 18:09 | NUR ---
pt daughter updated on pt condition.
[2020-08-11 20:39] VITALS: BP 111/55; PULSE 97; TEMP 99.1
--- NOTE | 2020-08-11 21:00 | NUR ---
Initial shift assessment done- pt resting comfortably in bed- denies pain, denies SOB, states shes fine- does not want to be bothered,, short answers, on Airvo 50L/90% and sats 88-89%, respiratory therapy in room with patient- encouraging her to wear the Bipap but pt refusing states 'she,s fine" Airvo was increased to 60L/90% and sats right at 90-91%. PICC to KODAK
[2020-08-12] VITALS (7 sets, daily range): BP systolic 103–154; BP diastolic 60–80; PULSE 81–98; TEMP 98.2–99.4
--- NOTE | 2020-08-12 06:06 | NUR ---
Has been up in chair for about 4 hours-states she feels better sitting up,,VSS, temp 99.0, Tele on, sats 97% on the Airvo 60L/90%,, states has a headache- tylenol given
[2020-08-12 07:20] LABS: BASO % 0.3 % (0.0-2.0); EOS # 0.3 (0.0-0.7); EOS % 3.5 % (0-4.0); GRAN # 5.2 (1.4-6.5); HEMOGLOBIN 10.5 g/dl (12.5-16.0); LYMPH # 1.1 (1.2-3.4); LYMPH % 15.9 % (20.0-51.0); MEAN CELL VOLUME 91 fl (80.0-100.0); MEAN CORPUSCULAR HEMOGLOBIN 27 pg (27.0-31.0); MEAN CORPUSCULAR HGB CONC 30 g/dl (33.0-37.0); MEAN PLATELET VOLUME 10.4 fl (7.4-10.4); MONO # 0.4 (0.1-0.6); MONO % 6.2 % (1.7-9.3); PLATELET COUNT 368 K/mm3 (130-400); RED BLOOD COUNT 3.84 M/mm3 (4.10-5.30)
[2020-08-12 07:39] LABS: CALCIUM 8.9 mg/dL (8.4-10.2); CREATININE, serum 0.61 (0.52-1.25); POTASSIUM 4.1 mmol/L (3.4-5.0)
--- NOTE | 2020-08-12 08:05 | NUR ---
PATIENT STATES SHE DID NOT WEAR BIBPA LAST NOC. ABLE TO WEAN FROM 90% FIO2 TO 75%, SPO2 93%
--- NOTE | 2020-08-12 08:15 | NUR ---
Assessment complete. Pt resting in chair with Airvo in place, resp tachy but unlabored. Pt A&O x 4, denies pain at this time. PICC line to right upper arm without s/s of complications. No further needs reported. Call light in reach.
--- NOTE | 2020-08-12 12:47 | NUR ---
buffing line set up worker spoke with Michael at [facility] who states that they will hold patient's bed in [place], [place] for placement tomorrow. This date, [facility] declines to transport patient, [facility] and [facility] do not have ground crews to transport patient today. Will pursue [facility] and reach out to [facility]. Awaiting if [facility] can transport.
--- NOTE | 2020-08-12 15:01 | NUR ---
Michael, at [facility], reports that they received auth from the patient's insurance and they are able to accept the patient. ALYSHA contaced [facility] and they report they are unable to accomodate the patient's oxygen needs. Michael at [facility] reports that they can take the patient tomorrow, 08/13. Michael requested updates. ALYSHA faxed updates to Michael. The accepting provider is Dr. Gallegos (ph#[phone]) and he is requesting a doc-to-doc call tomorrow. ALYSHA contacted Shira at [facility]. Shira reports that they are able to provide transportation for the patient tomorrow at [id number]. ALYSHA updated the PA. ALYSHA contacted and updated the patient's , Mayuri. Mayuri is in agreement to the plan. RN report: #[phone] Room #712
--- NOTE | 2020-08-12 16:05 | NUR ---
Pt sitting up in chair following bathroom use, denies pain or needs at this time. Airvo remains in place. Call light in reach.
--- NOTE | 2020-08-12 17:30 | NUR ---
Pt sitting up in chair for dinner. Sched insulin administered per orders. Warm blanket provided per request. Pt discussing POC with PCP over phone upon this nurse entering room, verbalizes understanding of discharge plan for tomorrow to [facility]. No further needs reported. Call light in reach.
--- NOTE | 2020-08-12 19:04 | NUR ---
Report to JESSICA Carter. Pt being assisted by aide to get into bed from chair.
--- NOTE | 2020-08-12 21:55 | NUR ---
Patient laying in bed resting upon enter the room. Respiratory therapy in the room. Patient is currently on Airvo 50L. SPO2 97%. Patient denies SOB or dyspnea. Denies chest pain, dizziness, or N/V. Scheduled meds given per SEP. Right upper arm PICC site has no s/s of complications. Call light within reach. Patient denies any need at this time.
[2020-08-13 04:42] VITALS: BP 137/78; PULSE 88; TEMP 98.6
--- NOTE | 2020-08-13 05:14 | NUR ---
Patient awake around 04:30 am and request assistance for sitting up on the edege of bed. Upon sitting up, patient states feeling a little dizzy. Checked SPO2 and it was 86% on Airvo 50L and 60%. Encouraged patient to pace activities encouraged to take deep breath in and out. SPO2 increased to 90% after 10 min of rest. Assisted patient to bedside commode to void. Assisted patient to the chair per patient request. 1 person minimal assist needed for transfer. Ice water offered. Patient resting in the chair comfortably at this time. Call light within reach. Patient denies further needs. Will give report to day shift nurse.
--- NOTE | 2020-08-13 07:22 | NUR ---
pt asleep in bed with oxygen in nose.
[2020-08-13 09:10] VITALS: BP 118/68; PULSE 72; TEMP 98.6
--- NOTE | 2020-08-13 09:57 | NUR ---
ALYSHA provided the hospitalist with the doc-to-doc number to Dr. Gallegos. The doc-to-doc call was done and [facility] is ready to take the patient today. ALYSHA provided the RN report number to the patient's RN. The patient is to discharge today, 08/13, to [facility] in [place], [place]. Transportation was scheduled at [id number], via [facility]. ALYSHA informed the patient's RN and her , Mayuri, over the phone. They were both agreeable to the time. ALYSHA also read the EMS Consent Form outloud to Mayuri over the phone. Mayuri verbalized understanding and gave SW approval to sign the form on his behalf. No additional needs at this time.
--- NOTE | 2020-08-13 10:13 | NUR ---
PATIENT WAS RECEIVED SITTED ON A CHAIRHAS A FLAT AFFECT,DENIES PAIN,ASSESSMENT DONE,DUE MEDICATION ADMINISTERED,SERVED WITH BREAKFAST.NO NEEDS AT THIS TIME
[2020-08-13 10:18] VITALS: BP 118/68; PULSE 72; TEMP 98.6
[2020-08-13 12:00] VITALS: BP 137/88; PULSE 72; TEMP 98.5
--- NOTE | 2020-08-13 14:00 | NUR ---
PATIENT DISCHARGED.PATIENT HAS LEFT THE FLOOR WITH EMS
== END 2020-08-13 14:00 | DRG 871 ==
LOC: COL.ER 17:24 → ICU 21:01 → COL.ER 21:01 → MEDICAL 21:01 → ICU 08-01 10:36 → MEDICAL 08-01 10:36 → ICU 08-01 10:36 → MEDICAL 08-09 14:36
PROVIDERS: Hospitalist; Internal Medicine Pulmonary Disease; Nurse Practitioner Family; Nurse Practitioner Primary Care; Physician Assistant; Student in an Organized Health Care Education/Training Program; ADMIT Family Medicine
PROC: XW033E5 Introduction of Remdesivir Anti-infective into Peripheral Vein, Percutaneous Approach, New Technology Group 5 (ICD-10-PCS; principal; 2020-07-29)
PROC: XW13325 Transfusion of Convalescent Plasma (Nonautologous) into Peripheral Vein, Percutaneous Approach, New Technology Group 5 (ICD-10-PCS; 2020-07-29)
PROC: 02HV33Z Insertion of Infusion Device into Superior Vena Cava, Percutaneous Approach (ICD-10-PCS; 2020-07-30)
DX: A41.9 Sepsis, unspecified organism (principal); U07.1 COVID-19; J96.01 Acute respiratory failure with hypoxia; J12.82 Pneumonia due to coronavirus disease 2019; E66.2 Morbid (severe) obesity with alveolar hypoventilation; Z68.42 Body mass index [BMI] 45.0-49.9, adult; R65.20 Severe sepsis without septic shock; I10 Essential (primary) hypertension; E78.5 Hyperlipidemia, unspecified; E03.9 Hypothyroidism, unspecified; E87.5 Hyperkalemia; F32.9 Major depressive disorder, single episode, unspecified; E11.65 Type 2 diabetes mellitus with hyperglycemia; Z90.710 Acquired absence of both cervix and uterus; Z79.84 Long term (current) use of oral hypoglycemic drugs; Z79.82 Long term (current) use of aspirin; Z88.6 Allergy status to analgesic agent
CPT/HCPCS: 99223-AI; 99232-AI; 99233-AI; 99239; C1751; C9113; J0696; J1100; J1650; J1815; J1940; J2543; J7030; J7050; J8540; Q9967

== ENCOUNTER → 2020-09-20 | Outpatient (CLI) | payer BC ==
[~2020-09-20] MED LIST changes: +APRESOLINE 25MG25 MG PO; +COZAAR 50MG50 MG/TAB PO; +HCTZ12.5TAB PO; +JARDIANCE25; +LEXAPRO 10MG10 MG PO; +VICTOZA6 MG/ML SQ; +ZYLOPRIM 300MG300 MG PO
== END ==
LOC: COL.PUL 06:35
DX: R06.02 Shortness of breath (principal)

== ENCOUNTER → 2020-10-21 | Outpatient (CLI) | payer BC ==
--- NOTE | 2020-10-21 10:55 | NUR ---
Patient refused ABG.
== END ==
LOC: COL.PUL 09:25
PROVIDERS: Internal Medicine Pulmonary Disease
DX: R06.02 Shortness of breath (principal)

== ENCOUNTER → 2021-05-06 | Outpatient (CLI) | payer MEDICARE, BC | LOC: COL.VAS 12:30 | DX: R06.02 Shortness of breath (principal); Z90.89 Acquired absence of other organs ==

== ENCOUNTER → 2021-07-30 | Outpatient (CLI) | payer MEDICARE, BC | LOC: MC.RAD 13:25 | DX: Z12.31 Encounter for screening mammogram for malignant neoplasm of breast (principal) ==

== ENCOUNTER → 2022-09-08 | Outpatient (CLI) | payer MEDICARE, BC | LOC: MC.RAD 10:07 | DX: Z12.31 Encounter for screening mammogram for malignant neoplasm of breast (principal) ==